=== PATIENT | male | born 1965 | race African-American/Black ===

== ENCOUNTER 2016-04-14 02:16 | Emergency (ER) | payer SELFPAY ==
[2016-04-14] MEDS ORDERED: KETOROLAC 30 MG/ML VIAL ONE (03:35)
[2016-04-14] MEDS ORDERED: SODIUM CHLORIDE 0.9% 1,000 ML ONE (04:33)
== END 2016-04-14 06:30 | disposition home or self-care (01) ==
LOC: ER 02:16
DX: N23 Unspecified renal colic (principal); N13.30 Unspecified hydronephrosis
CPT/HCPCS: 36415; 74022; 74176; 80053; 81001; 83690; 85025; 96361; 96374